=== PATIENT | female | born 1960 | race Caucasian/White ===

== ENCOUNTER 2025-11-13 17:54 | Emergency (ER) | payer MEDICARE, OTHER ==
[2025-11-13 18:30] LABS: Glucose, Urine (Dipstick) Normal (Negative); Leukocyte 100 (Negative); Protein, Urine (Dipstick) 30 mg/dl (Neg-Trace); Specific Gravity, Urine 1.015 (1.005-1.030)
[2025-11-13 19:01] LABS: Bacteria/HPF Rare-Few HPF (None Seen); CAUTI Indications for Culture Dysuria,urgency,freq; Urine Culture Reflex Yes Yes; WBC/HPF 21-50 HPF (0-3)
[2025-11-13 19:16] LABS: #Basophils 0.03 10x3/uL (0.0-0.2); #Eosinophils Less than 0.03 10x3/uL (0.0-0.5); #Monocytes 0.71 10x3/uL (0.0-1.1); #Neutrophils 6.36 10x3/uL (1.5-8.4); %Basophils 0.4 % (0.0-2.0); %Eosinophils 0.1 % (0.0-6.0); %Lymphocytes 13.1 % (18.0-47.0); %Monocytes 8.6 % (0.0-10.0); %Neutrophils 77.4 % (40.0-75.0); Hematocrit 38.8 % (34.9-44.5); Hemoglobin 12.5 g/dL (12.0-15.5); Mean Corpuscular Hemoglobin 29.8 pg (27.0-33.0); Mean Corpuscular Volume 92.6 fL (81.6-98.3); Platelet Count 178 10x3/uL (150-450); Red Blood Cell (RBC) Count 4.19 10x6/uL (3.90-5.03); White Blood Cell (WBC) Count 8.22 10x3/uL (3.5-10.5)
[2025-11-13 19:32] LABS: ALT (SGPT) 18 U/L (Less than 34); AST (SGOT) 18 U/L (11-34); Albumin 3.8 g/dL (3.1-4.5); Alkaline Phosphatase 66 U/L (40-110); Anion Gap 12 mmol/L (10-20); BUN (Urea Nitrogen) 11 mg/dL (9.8-20.1); Bilirubin, Total 0.4 mg/dL (0.3-1.2); Calc. Creatinine Clearance 0 mL/min (70-130); Calcium 9.0 mg/dL (7.8-10.44); Carbon Dioxide 27 mmol/L (23-31); Chloride 100 mmol/L (98-107); Globulin 3.5 g/dL (2.4-3.5); Glucose 130 mg/dL (80-115); Potassium 4.4 mmol/L (3.5-5.1); Sodium 135 mmol/L (136-145)
[2025-11-13] MEDS ORDERED: Ondansetron PF 4 MG/2 ML Vial ONE (19:47)
[2025-11-13] MEDS ORDERED: cefTRIAXone (ROCEPHIN) 2 GM VIAL ONE (19:47)
[2025-11-13] MEDS ORDERED: Acetaminophen 500 MG TAB ONE (20:55)
== END 2025-11-13 21:00 | disposition home or self-care (01) ==
LOC: CSHERS 17:54
DX: N39.0 Urinary tract infection, site not specified (principal); I10 Essential (primary) hypertension; I48.91 Unspecified atrial fibrillation
CPT/HCPCS: 36415; 80053; 81001; 83605; 85025; 87077; 87086; 87186; 87428; 93005; 96365; 96375; J0696; J2405